=== PATIENT | male | born 1980 | race Two or more races ===

== ENCOUNTER 2020-07-10 03:09 | Emergency (ER) | payer SELFPAY ==
[~2020-07-10] VITALS: Ht 175.3 cm; Wt 109.6 kg
[2020-07-10 03:12] VITALS: BP 123/87
[2020-07-10] MEDS ORDERED: DIPHENHYDRAMINE 25 MG CAPSULE PO ONE (03:30)
[2020-07-10] MEDS ORDERED: DIPHENHYDRAMINE 25 MG CAPSULE ONE (03:37)
== END 2020-07-10 04:26 | disposition home or self-care (01) ==
LOC: ED 03:39
DX: J30.9 Allergic rhinitis, unspecified (principal); T78.8XXA Other adverse effects, not elsewhere classified, initial encounter; X58.XXXA Exposure to other specified factors, initial encounter
CPT/HCPCS: 99283